=== PATIENT | female | born 1990 | race Caucasian/White ===

== ENCOUNTER 2019-10-26 07:06 | Outpatient (CLI) | payer BC, SELFPAY ==
--- NOTE | 2019-10-26 07:28 | US_ITS ---
WS: [id number] THYROID ULTRASOUND HISTORY: NONTOXIC GOITER COMPARISON: None available. Right lobe: 5.4 cm x 1.9 cm x 1.9 cm. Volume: 10.4 cm3. Slightly enlarged gland. 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 No suspicious mass . Largest colloid cyst with a maximum diameter 4 mm in the inferior lobe. Left lobe: 4.9 cm x 1.7 cm x 0.9 cm. Volume: 3.8 cm3. Normal size and echotexture. No significant or dominant nodules are present. Isthmus: 0.3 cm. US/US thyroid 47866 IMPRESSION: 1. No suspicious thyroid mass. 2. Colloid cyst RIGHT thyroid.
== END 2019-10-26 07:07 | disposition home or self-care (01) ==
PROVIDERS: Visit Provider Family Medicine
DX: E04.9 Nontoxic goiter, unspecified (principal); E04.1 Nontoxic single thyroid nodule
CPT/HCPCS: 76536

== ENCOUNTER 2020-12-30 22:04 | Emergency (ER) | payer OTHER, SELFPAY ==
[2020-12-30 22:21] VITALS: BP 152/100; PULSE 89; RESP 20; TEMP 37.2; O2SAT 96; BMI 40.7
--- NOTE | 2020-12-30 22:31 | ED_ITS ---
HPI - General Adult General: Chief complaint: Needlestick/Injury/Exposure Stated complaint: Stuck with dirty needle at work Time Seen by Provider: 12/30/20 22:11 History of Present Illness: HPI narrative: Patient is a 30-year-old female comes to the ED after an accidental needlestick with used needle. Needlestick injury occurred just prior to arrival. 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 There is a little bit of bleeding after injury. She immediately cleaned it with alcohol. Patient says the dirty needle came from a 81-year-old male but they were running a code on. She says that she asked family about medical history and they were not aware of him having any blood borne pathogens or illness. Associated symptoms: Deny chest pain, dyspnea, headache(s), nausea, rash, palpitations or vomiting Review of Systems Narrative: Accidental needlestick Const: Denies: fever(s), chills or fatigue Eyes: Denies: change in vision or eye discomfort ENMT: Denies: throat pain, odynophagia, nasal discharge or nasal congestion Card: Denies: chest pain, palpitations, edema, swelling of feet/ankles, dyspnea on exertion or orthopnea Resp: Denies: dyspnea, productive cough or non-productive cough GI: Denies: abdominal pain, nausea, vomiting, diarrhea, constipation or hematochezia : Denies: flank pain, dysuria or hematuria Musc: Denies: neck pain, back pain or extremity swelling Skin/Breast: Reports: new lesions (Small puncture wound to left wrist.); Denies: rash Neuro: Denies: headache(s), numbness in extremities or weakness in extremities [facility] PFSH: Social History Smoking and tobacco status: never smoked Physical Exam Const: COMMON NORMALS: no acute distress, patient oriented x3, healthy appearing and alert GENERAL APPEARANCE: cooperative and comfortable HENMT: COMMON NORMALS: normocephalic HEAD & SCALP: normocephalic MOUTH: Normal oral and palatal mucosa present THROAT: posterior oropharynx normal and uvula midline Neck/C-Spine: COMMON NORMALS: supple GENERAL: Yes normal visual inspection Resp: COMMON NORMALS: normal respiratory effort, No retractions, No use of accessory muscles and clear to auscultation bilaterally AUSCULTATION: clear to auscultation bilaterally Cardio: COMMON NORMALS: regular rate, regular rhythm, S1 normal heart sound present, S2 normal heart sound present, No gallops present (Cardio), No clicks present (Cardio), No murmurs present (Cardio) and Peripheral pulses 2+ throughout RATE: regular rate RHYTHM: regular rhythm HEART SOUNDS: S1 normal heart sound present and S2 normal heart sound present PERIPHERAL PULSES: Peripheral pulses 2+ throughout GI: COMMON NORMALS: Normal to inspection, nondistended, normoactive bowel sounds present, Soft to palpation, non-tender and no masses PALPATION: Yes Soft to palpation : COMMON NORMALS: Yes no CVA tenderness BLADDER/KIDNEY EXAM: Yes no CVA tenderness Back/Pelvis: COMMON NORMALS: no CVA tenderness Extremity: COMMON NORMALS: normal to inspection Neuro: COMMON NORMALS: patient oriented x3 and moves all extremities SENSORIUM/ORIENTATION: Yes alert Skin: NARRATIVE SKIN EXAM: Small puncture wound on the lateral aspect of left wrist. No bleeding seen. GENERAL SKIN EXAM: dry skin Course Vital Signs: Vital signs: Vital Signs Temperature 98.9 F 12/30/20 22:21 Pulse Rate 89 12/30/20 22:21 Respiratory Rate 20 H 12/30/20 22:21 Blood Pressure 152/100 12/30/20 22:21 Pulse Oximetry 96 12/30/20 22:21 MDM - General Adult MDM Narrative: Medical decision making narrative: Patient is a 30-year-old female comes to the ED with an accidental needlestick injury. 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 Vital stable. Patient appears in no acute distress or pain. HIV and hepatitis panel labs were performed. Patient was discharged and told to follow-up with her PCP to repeat labs including HIV and hepatitis panel in the next 2 to 3 months. Return to ED precautions given. Patient understood agree with plan. Discharge Plan Discharge Patient Disposition: Home Clinical Impression: Accidental needlestick injury with exposure to body fluid Condition: Stable Prescriptions: No Action Control Pill PO RF: 0 azithromycin 250 mg tablet See Rx Instructions PO .COMPLEX 5 Days Qty: 6 RF: 0 Discharge Orders: Discharge ED (Routine); Ordered 12/30/20 Ordered By: Sebastien Lewis Discharge Diet: Regular Discharge Activity: Resume usual activity Patient Instructions: Blood/Body Fluid Exposure - Occupational, Needle Stick Injuries (ED) Activity Restrictions/Additional Instructions: Follow-up with medical provider as directed. Follow-up with your PCP in the next 2 to 3 months and have blood work rechecked including HIV and hepatitis panel. Continue taking all previously prescribed home medications. return to the ER or your medical provider if condition worsens. Please read and understand discharge instructions. Thank you for choosing [facility] for your healthcare needs today. Please realize this is an emergency room and that we are providing you with a medical screening exam and this may not be complete and all inclusive of all the testing and or work up that you may need to determine your ailment or severity of your illness. It is very important that you follow up as instructed or that you return to the Emergency Department should you have concerns or if your condition changes or worsens in any way. 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
[2020-12-30 23:07] VITALS: BP 170/98; PULSE 99; RESP 16; O2SAT 98
[2020-12-31 00:04] LABS: HIV 1 & 2 Antibody Non-Reactive (Non-Reactiv); HIV 1 & 2 Antigen Non-Reactive (Non-Reactiv)
[2020-12-31 00:08] LABS: Hepatitis A Antibody IgM Non-Reactive (Nonreactive); Hepatitis B Core AB, Total Non-Reactive (Nonreactive); Hepatitis B Surface AB 172.5 (11.5-1000); Hepatitis B Surface Antigen Non-Reactive (Nonreactive); Hepatitis C Virus Antibody Non-Reactive (Nonreactive)
== END 2020-12-30 23:08 | disposition home or self-care (01) ==
PROVIDERS: Emergency Provider Physician Assistant
DX: S69.82XA Other specified injuries of left wrist, hand and finger(s), initial encounter (principal); W46.1XXA Contact with contaminated hypodermic needle, initial encounter; Y99.0 Civilian activity done for income or pay
CPT/HCPCS: 86705; 86706; 86709; 86803; 87340; 87806; 99282

== ENCOUNTER 2022-03-25 12:28 | Outpatient (CLI) | payer OTHER, SELFPAY ==
--- NOTE | 2022-03-25 12:39 | XR_ITS ---
WS: [id number] Right foot, 3 views, 03/25/2022 Clinical Data: PAIN IN R FOOT Comparison: None. Findings: No fractures or dislocations are seen. No bone destruction or erosion is noted. The joint spaces and soft tissues are normal. XR/XR foot RT min 3V* [id number] Impression: Negative right foot.
== END 2022-03-25 12:29 | disposition home or self-care (01) ==
LOC: RAD 12:34
PROVIDERS: PCP Family Medicine; Visit Provider Family Medicine
DX: M79.671 Pain in right foot (principal)
CPT/HCPCS: 73630